=== PATIENT | male | born 1975 | race African-American/Black ===

== ENCOUNTER 2016-12-17 10:00 | Emergency (ER) | payer OTHER ==
[~2016-12-17] VITALS: Ht 167.6 cm; Wt 88.4 kg
[~2016-12-17 10:00] MED LIST: ALBUTEROL SULF8.5 GM IH; AUGMENTIN875 MG PO; CIPRO500 MG PO; CLINDAMYCIN HC300 MG PO; LORTAB 5-325 M1 EACH PO; MAGIC MOUTHWASH1 ML MM; MOTRIN800 MG PO; NAPROSYN500 MG PO; NORVIR100 M1 PO; NORVIR100 MG PO; PEN-VEE K,VEET500 MG PO; PERCOCET 5/31 TABLET PO; PERIDEX1 ML MM; PREDNISONE20 MG PO; PREZISTA800 MG PO; REYATAZ300 MG PO; TRUVADA1 TABLET PO; TYLENOL WITH C1 EACH PO; ULTRAM50 MG PO; VENTOLIN HFA18 GM IH; ZITHROMAX Z-PA250 MG PO; [UNRECOGNIZED DRUG - OTHER] MM; [UNRECOGNIZED DRUG - OTHER] PO
[2016-12-17] MEDS ORDERED: TIVICAY50 MG PO (12:07)
[2016-12-17] MEDS ORDERED: FLEXERIL10 MG PO (12:11)
[2016-12-17] MEDS ORDERED: MOTRIN600 MG PO (12:11)
[2016-12-17 12:24] VITALS: BP 139/94
== END 2016-12-17 12:25 | disposition home or self-care (01) ==
LOC: EME 10:00
DX: S39.012A Strain of muscle, fascia and tendon of lower back, initial encounter (principal); S70.01XA Contusion of right hip, initial encounter; V54.6XXA Passenger in pick-up truck or van injured in collision with heavy transport vehicle or bus in traffic accident, initial encounter; Y92.481 Parking lot as the place of occurrence of the external cause; F17.200 Nicotine dependence, unspecified, uncomplicated
CPT/HCPCS: 99281; 99284

== ENCOUNTER 2016-12-25 16:19 | Emergency (ER) | payer OTHER ==
[~2016-12-25] VITALS: Ht 170.2 cm; Wt 84.4 kg
[~2016-12-25 16:19] MED LIST changes: +FLEXERIL10 MG PO; +MOTRIN600 MG PO; +TIVICAY50 MG PO
[2016-12-25] MEDS ORDERED: VALIUM5 MG PO (18:28)
[2016-12-25] MEDS ORDERED: NORCO 5/3251 TABLET PO (18:28)
[2016-12-25] MEDS ORDERED: MEDROL DOSEPAK4 MG PO (18:28)
[2016-12-25 18:46] VITALS: BP 103/69
== END 2016-12-25 18:46 | disposition home or self-care (01) ==
LOC: EME 16:19
DX: S39.012D Strain of muscle, fascia and tendon of lower back, subsequent encounter (principal); V69.40 Driver of heavy transport vehicle injured in collision with unspecified motor vehicles in traffic accident; Y99.0 Civilian activity done for income or pay; F17.200 Nicotine dependence, unspecified, uncomplicated
CPT/HCPCS: 72100; 99281; 99283

== ENCOUNTER 2017-03-28 12:48 | Emergency (ER) | payer OTHER ==
[~2017-03-28] VITALS: Ht 170.2 cm; Wt 90.2 kg
[~2017-03-28 12:48] MED LIST changes: +MEDROL DOSEPAK4 MG PO; +NORCO 5/3251 TABLET PO; +VALIUM5 MG PO
[2017-03-28 13:34] LABS: HEMATOCRIT 44.6 % (38.0-50.0); MCH 29.7 PG (29.0-34.0); MCHC 33.6 G/DL (30.0-36.0); MCV 88.3 FL (86-99); PLATELET COUNT 234 K/uL (156-360); RBC DIS.WIDTH-CV 12.5 % (11.8-14.6); RBC DIS.WIDTH-SD 40.8 % (39-53); RED BLOOD COUNT 5.05 M/uL (4.00-5.50); WHITE BLOOD COUNT 5.4 K/uL (4.1-10.2)
[2017-03-28 13:47] LABS: CHLORIDE 107 mEq/L (99-109); POTASSIUM 4.4 mEq/L (3.7-5.4); SODIUM 142 mEq/L (136-147)
[2017-03-28 13:49] LABS: GLUCOSE 66 mg/dL (70-99)
[2017-03-28 13:52] LABS: CREATININE 0.8 mg/dL (0.6-1.3); GFR ESTIMATE (CALCULATED) > 59 mL/min/ (58.99-99999)
[2017-03-28 13:53] LABS: UREA NITROGEN (BUN) 7 mg/dL (9-23)
[2017-03-28 13:55] LABS: TROP-I INTERPRETATION NEGATIVE; TROPONIN-I < 0.01 ng/mL (0.0-0.30)
[2017-03-28] MEDS ORDERED: LEVAQUIN750 MG PO (18:41)
[2017-03-28] MEDS ORDERED: PROVENTIL HFA6.7 GM IH (18:41)
[2017-03-28] MEDS ORDERED: ULTRAM50 MG PO (18:41)
[2017-03-28] MEDS ORDERED: PREDNISONE20 MG PO (18:41)
[2017-03-28 18:54] VITALS: BP 138/76
== END 2017-03-28 18:55 | disposition home or self-care (01) ==
LOC: EME 12:48
DX: J20.9 Acute bronchitis, unspecified (principal); J45.909 Unspecified asthma, uncomplicated; F31.9 Bipolar disorder, unspecified; B20 Human immunodeficiency virus [HIV] disease; F17.200 Nicotine dependence, unspecified, uncomplicated
CPT/HCPCS: 71020; 80048; 84484; 85027; 93005; 94640; 99281; 99284; J2930

== ENCOUNTER 2017-11-17 18:18 | Inpatient (IN) | payer OTHER ==
[~2017-11-17] VITALS: Ht 170.2 cm; Wt 95.0 kg
[~2017-11-17 18:18] MED LIST changes: +LEVAQUIN750 MG PO; +PROVENTIL HFA6.7 GM IH
[2017-11-17 18:56] LABS: BASOPHIL (%) 0.4 % (0-1); EOSINOPHIL (%) 5.4 % (0-5); EOSINOPHIL COUNT 0.4 K/uL (0-0.3); HEMOGLOBIN 14.6 G/DL (12.5-16.6); IMMATURE GRANULOCYTE (%) 0.1 % (0.0-0.7); LYMPHOCYTE (%) 14.7 % (15-42); LYMPHOCYTE COUNT 1.2 K/uL (1.0-2.8); MCH 29.7 PG (29.0-34.0); MCV 87.4 FL (86-99); MONOCYTE (%) 5.9 % (3-12); MONOCYTE COUNT 0.5 K/uL (0-0.8); NEUTROPHIL (%) 73.5 % (45-76); PLATELET COUNT 231 K/uL (156-360); RBC DIS.WIDTH-SD 41.4 % (39-53); RED BLOOD COUNT 4.92 M/uL (4.00-5.50); WHITE BLOOD COUNT 8.2 K/uL (4.1-10.2)
[2017-11-17 19:04] LABS: ALBUMIN 4.1 g/dL (3.2-4.8); CHLORIDE 109 mEq/L (99-109); SODIUM 141 mEq/L (136-147)
[2017-11-17 19:07] LABS: GLUCOSE 88 mg/dL (70-99); TOTAL PROTEIN 7.5 g/dL (6.4-8.3)
[2017-11-17 19:09] LABS: TOTAL BILIRUBIN 0.5 mg/dL (0.0-1.0)
[2017-11-17 19:10] LABS: ALKALINE PHOSPHATASE 65 IU/L (3-129); CREATININE 0.8 mg/dL (0.6-1.3); GFR ESTIMATE (CALCULATED) > 59 mL/min/ (58.99-99999)
[2017-11-17 19:11] LABS: UREA NITROGEN (BUN) 9 mg/dL (9-23)
[2017-11-17 19:12] LABS: AST (GOT) 16 IU/L (2-34)
[2017-11-17 19:13] LABS: ALT (GPT) 8 IU/L (3-49)
[2017-11-17 19:16] LABS: TROP-I INTERPRETATION NEGATIVE; TROPONIN-I < 0.01 ng/mL (0.0-0.30)
[2017-11-17] MEDS ORDERED: VENTOLIN HFA18 GM IH (21:33)
[2017-11-17] MEDS ORDERED: FLOVENT DISKUS1 DIS2 IH (21:34)
[2017-11-17] MEDS ORDERED: SYMBICORT60 INHALAT IH (21:34)
[2017-11-17] MEDS ORDERED: VITAMIN D31000 UNIT PO (21:35)
[2017-11-17] MEDS ORDERED: TRUVADA1 TABLET PO (21:35)
[2017-11-17] MEDS ORDERED: OXYCODONE HCL10 MG PO (21:35)
[2017-11-17] MEDS ORDERED: BUSPAR30 MG PO (21:35)
[2017-11-17] MEDS ORDERED: LEXAPRO20 MG PO (21:36)
[2017-11-17 22:35] VITALS: BP 138/82
[2017-11-18 04:52] VITALS: BP 121/63
[2017-11-18 05:40] LABS: HEMOGLOBIN 14.2 G/DL (12.5-16.6); MCH 29.5 PG (29.0-34.0); MCHC 33.8 G/DL (30.0-36.0); MCV 87.3 FL (86-99); PLATELET COUNT 243 K/uL (156-360); RBC DIS.WIDTH-SD 41.9 % (39-53); RED BLOOD COUNT 4.81 M/uL (4.00-5.50); WHITE BLOOD COUNT 6.6 K/uL (4.1-10.2)
[2017-11-18 05:59] LABS: CHLORIDE 107 MEQ/L (99-109); CREATININE 0.9 MG/DL (0.6-1.3); GFR ESTIMATE (CALCULATED) > 59 mL/min/ (58.99-99999); SODIUM 141 MEQ/L (136-147); UREA NITROGEN (BUN) 12 mg/dL (9-23)
[2017-11-18 06:00] LABS: GLUCOSE 189 mg/dL (70-99)
[2017-11-18 07:51] VITALS: BP 126/78
[2017-11-18 11:36] VITALS: BP 142/89
[2017-11-18 15:26] VITALS: BP 138/77
[2017-11-18 19:54] VITALS: BP 140/84
[2017-11-19 00:31] VITALS: BP 132/76
[2017-11-19 05:24] VITALS: BP 137/93
[2017-11-19 07:33] VITALS: BP 129/82
[2017-11-19 11:30] VITALS: BP 136/80
[2017-11-19] MEDS ORDERED: AZITHROMYCIN250 MG1 PO (12:08)
[2017-11-19] MEDS ORDERED: PREDNISONE10 MG PO (12:09)
[2017-11-20 16:35] LABS: CD4/CD8 Ratio 0.45 (0.86-5.00)
== END 2017-11-19 12:55 | disposition home or self-care (01) | DRG 202 ==
LOC: EME 18:18 → EDOF 21:37 → 4SOUTH 22:26
PROVIDERS: Emergency Medicine; Hospitalist; Internal Medicine
DX: J45.901 Unspecified asthma with (acute) exacerbation (principal); B20 Human immunodeficiency virus [HIV] disease; F32.9 Major depressive disorder, single episode, unspecified; F17.200 Nicotine dependence, unspecified, uncomplicated
CPT/HCPCS: 71045; 80048; 80053; 83880; 84484; 85025; 85027; 86355 90; 86359 90; 86360 90; 87536; 93005; 94640; 94644; 94799; 99281; 99285; G0378; J0456; J2930